=== PATIENT | female | born 1960 | race Caucasian/White ===

== ENCOUNTER 2017-12-27 12:17 | Emergency (ER) | payer OTHER, SELFPAY ==
[2017-12-27] MEDS ORDERED: Vancomycin HCl 750 MG VIAL ONE (12:58)
[2017-12-27] MEDS ORDERED: methylPREDNISolone Sod Succ/PF 125 MG/2 ML VIAL ONE (12:59)
[2017-12-27] MEDS ORDERED: Sodium Chloride 0.9% 500 ML ONE (12:59)
[2017-12-27 13:12] LABS: Lactic Acid 0.7 mmol/L (0.5-2.2)
--- NOTE | 2017-12-27 13:13 | RAD ---
PORTABLE CHEST 1 VIEW: Date: 12/27/17 Time: 1255 hours HISTORY: Dyspnea. FINDINGS: The heart size is normal. The lungs are expanded without focal areas of consolidation, pneumothorax, or pleural effusions. There are postop changes in the lower cervical spine. IMPRESSION: No radiographic evidence of acute cardiopulmonary process. POS: [facility]
[2017-12-27 13:19] LABS: ALT (SGPT) 9 U/L (8-55); AST (SGOT) 11 U/L (5-34); Albumin 3.3 g/dL (3.5-5.0); Alkaline Phosphatase 88 U/L (40-150); Anion Gap 15 mmol/L (10-20); BUN (Urea Nitrogen) 20 mg/dL (9.8-20.1); Bilirubin, Total 0.2 mg/dL (0.2-1.2); CK (CPK) 25 U/L (29-168); Calc. Creatinine Clearance 0 mL/min (70-130); Calcium 9.4 mg/dL (7.8-10.44); Carbon Dioxide 14 mmol/L (22-29); Chloride 115 mmol/L (98-107); Estimated GFR-MDRD 30; Globulin 3.2 g/dL (2.4-3.5); Glucose 88 mg/dL (70-105); Protein, Total 6.5 g/dL (6.0-8.3); Sodium 141 mmol/L (136-145)
[2017-12-27 13:20] LABS: CKMB 1.3 ng/mL (0-6.6); Troponin I Less than 0.010 ng/mL (< 0.028)
[2017-12-27 13:22] LABS: Hemoglobin 11.1 g/dL (12.0-16.0); Mean Corpuscular HGB CONC 33.2 g/dL (32.0-36.0); Mean Corpuscular Hemoglobin 28.5 pg (27.0-31.0); Mean Corpuscular Volume 85.9 fl (81.0-99.0); Mean Platelet Volume 10.2 fL (7.4-10.4); Platelet Count 209 thou/uL (130-400); RBC Distribution Width 12.4 % (11.5-14.5); Red Blood Cell (RBC) Count 3.89 mill/uL (4.20-5.40); White Blood Cell (WBC) Count 14.3 thou/uL (4.8-10.8)
[2017-12-27 13:23] LABS: Band 4 % (5-11); Lymphocytes 24 % (21-51); MDiff Complete? YES; Monocytes 10 % (0-10); Neutrophil 62 % (42-75); PLT Morphology Comment Appears Adequate
[2017-12-27 13:27] LABS: Potassium 2.8 mmol/L (3.5-5.1)
--- NOTE | 2017-12-27 13:30 | RAD ---
LEFT ELBOW 4 VIEWS: Date: 12/27/17 HISTORY: Redness and swelling of the left elbow, left elbow pain, trauma. FINDINGS/IMPRESSION: No acute fracture or dislocation is identified. POS: [facility]
[2017-12-27] MEDS ORDERED: Potassium Chloride 20 MEQ TAB ONE (14:17)
== END 2017-12-27 15:08 | disposition short-term general hospital (02) ==
LOC: NAV ERS 12:17
DX: J44.1 Chronic obstructive pulmonary disease with (acute) exacerbation (principal); J44.0 Chronic obstructive pulmonary disease with (acute) lower respiratory infection; J20.9 Acute bronchitis, unspecified; J01.90 Acute sinusitis, unspecified; L03.114 Cellulitis of left upper limb; E78.5 Hyperlipidemia, unspecified; I10 Essential (primary) hypertension; F17.210 Nicotine dependence, cigarettes, uncomplicated; Z79.899 Other long term (current) drug therapy
CPT/HCPCS: 36415; 71045; 80053; 82550; 82553; 83605; 83880; 84484; 85025; 87040; 87077; 87149; 87186; 96365; 96366; 96375; J2930; J3370; J7050; J7620

== ENCOUNTER 2020-04-09 10:56 | Outpatient (CLI) | payer OTHER ==
--- NOTE | 2020-04-09 13:27 | RAD ---
LEFT KNEE TWO VIEWS: 04/09/20 HISTORY: Knee pain. There is severe osteoarthritic changes of the knee. Severe medial compartment narrowing. Prominent de generative change of the patellofemoral and lesser changes of the lateral compartment. IMPRESSION: Severe osteoarthritic changes of the knee. POS: [facility]
--- NOTE | 2020-04-12 07:26 | RAD ---
Exam:Right knee 2 views HISTORY: Osteomyelitis. COMPARISON: None FINDINGS: Moderate degenerative change involving the medial compartment and patellofemoral compartmen t. There appears to be lucency involving the medial femoral condyle suggesting osteochondral defect. Better evaluation with MRI is recommended. Mild osteophyte formation along the lateral aspect of the femoral condyle and tibial plateau. No joint effusion or acute fracture. IMPRESSION: 1. Bicompartmental degenerative change. 2. Lucency involving the medial femoral condyle suggesting a osteochondral defect. Better interrogati on with MRI is recommended.
== END 2020-04-09 10:57 | disposition home or self-care (01) ==
LOC: NAV RAD 10:56
PROVIDERS: ATTEND Nurse Practitioner Family
DX: M17.0 Bilateral primary osteoarthritis of knee (principal)